=== PATIENT | female | born 1965 | race African-American/Black ===

== ENCOUNTER 2019-12-01 14:15 | Emergency (ER) | payer MEDICAID, SELFPAY ==
[2019-12-01 14:15] VITALS: BP 144/77; PULSE 84; RESP 16; TEMP 36.9; O2SAT 98; BMI 23.7
--- NOTE | 2019-12-01 14:25 | XR_ITS ---
PROCEDURE: XR CHEST PORTABLE CLINICAL HISTORY: ams Altered mental status, altered level of consciousness, confusion, disorientation COMPARISON: CXR CHEST(2 VIEWS-NOT PORTABLE) from 06/07/2014 CXR CHEST(2 VIEWS-NOT PORTABLE) from 02/17/2015 CXR1 CHEST-PORTABLE from 04/04/2015 FINDINGS: The cardiomediastinal silhouette and pulmonary vascularity are within normal limits. The lungs are clear without infiltrates, suspicious nodules, or pleural effusions. No acute bony abnormalities. IMPRESSION: No acute findings. Dictated by: Jose Angel MD 12/01/2019 15:08 Electronically signed by Jose Angel MD in [place] 12/01/2019 15:08
--- NOTE | 2019-12-01 14:27 | HMH.EDGENADL ---
ED Disposition Clinical Impression: Hypoglycemia Diabetes mellitus Qualifiers: Diabetes mellitus type: type 2 Diabetes mellitus adjunct faculty for medical terminology insulin use: with senior care use Diabetes mellitus complication status: with hypoglycemia Diabetes mellitus complication detail: without coma Qualified Code(s): E11.649 - Type 2 diabetes mellitus with hypoglycemia without coma; Z79.4 - technician terminal and repeater (current) use of insulin Uncontrolled diabetes mellitus Qualifiers: Diabetes mellitus type: type 2 Glycemic state: with hypoglycemia Coma presence: without coma Qualified Code(s): E11.649 - Type 2 diabetes mellitus with hypoglycemia without coma Disposition: Home, Self-Care Condition on Discharge: Fair Instructions: DI for Hypoglycemia Additional Instructions: You have been evaluated for low blood sugar, hypoglycemia. Please monitor your blood sugar at home. Do not take insulin if you are not going to eat. Follow-up with your primary care doctor as soon as available. Return to the emergency department if you have any new or worsening symptoms Referrals: PCP,No [Primary Care Provider] - Time of Disposition: 17:08 - Critical Care Critical Care Time: No Attestation: On , the high probability of a clinically significant, sudden or life threatening deterioration of the following system(s) required my full and direct attention, intervention and personal management. The time I documented below is in addition to time spent performing reported procedures but includes the following listed in this critical care notation. Medical Decision Making - Medical Records Medical records reviewed: Yes: I reviewed the patient's medical records. - Ferny Inquiry Pt receiving controlled substance: No Vital Signs: 12/01/19 14:15 12/01/19 14:34 12/01/19 15:48 Temperature 98.5 F Temperature Source Oral Pulse Rate [Right] 84 83 82 Respiratory Rate 16 Blood Pressure [Right Arm] 144/77 H 144/77 H 163/76 H Blood Pressure Mean [Right Arm] 99 99 105 Blood Pressure Source [Right Arm] Automatic Cuff Automatic Cuff Automatic Cuff Blood Pressure Position [Right Arm] Sitting Sitting Sitting 02 Sat by Pulse Oximetry 98 97 100 Oxygen Delivery Method Room Air Room Air Room Air 12/01/19 16:12 12/01/19 16:40 Temperature Temperature Source Pulse Rate [Right] 82 86 Respiratory Rate Blood Pressure [Right Arm] 146/77 H 156/82 H Blood Pressure Mean [Right Arm] 100 106 Blood Pressure Source [Right Arm] Automatic Cuff Automatic Cuff Blood Pressure Position [Right Arm] Sitting Sitting 02 Sat by Pulse Oximetry 99 99 Oxygen Delivery Method Room Air Room Air - Lab Data Lab Results 12/01/19 14:38: Urine Color Yellow, Urine Appearance Clear, Urine pH 7.0, Ur Specific [place] 1.020, Urine Protein Negative, Urine Glucose (UA) Trace, Urine Ketones Negative, Urine Blood Negative, Urine Nitrate Negative, Urine Bilirubin Negative, Urine Urobilinogen 0.2, Ur Leukocyte Esterase Negative, Urine RBC Occasional, Urine WBC Occasional, Ur Squamous Epith Cells 3-5, Urine Bacteria None 12/01/19 14:38: Urine Opiates Screen Negative, Urine Methadone Screen Negative, Ur Barbituates Screen Negative, Ur Phencyclidine Scrn Negative, Ur Amphetamines Screen Negative, U Benzodiazepines Scrn Negative, Urine Cocaine Screen Negative, U Marijuana (THC) Screen Negative 12/01/19 15:18: WBC 5.3, RBC 4.65, Hgb 12.0 L, Hct 38.5, MCV 82.8, MCH 25.7 L, MCHC 31.0 L, RDW 18.7 H, Plt Count 362, MPV 8.0, Neut % (Auto) 61.3, Lymph % (Auto) 28.7, [place] % (Auto) 7.0, Eos % (Auto) 2.7, Baso % (Auto) 0.3, Neut # (Auto) 3.3, Lymph # (Auto) 1.5, [place] # (Auto) 0.4, Eos # (Auto) 0.1, Baso # (Auto) 0.0 12/01/19 15:18: Sodium 137, Potassium 4.1, Chloride 97 L, Carbon Dioxide 29, Anion Gap 15.1 H, BUN 15, Creatinine 0.70, Estimated Creat Clear 87, Estimated GFR 87, Est GFR ( Amer) 105, Glucose 99, Calcium 9.5 12/01/19 15:18: Plasma/Serum Alcohol < 10 12/01/19 16:52: POC Glucose 222 H Result diagrams: 11/30
[2019-12-01 14:34] VITALS: BP 144/77; PULSE 83; O2SAT 97
--- NOTE | 2019-12-01 14:34 | PC.NURSE ---
FSBS 46 upon arrival pt given amp of d50 and orange juice. ordered tray pt in bed eating at this time.
[2019-12-01 14:42] LABS: Microscopic, Urine URINE MICROSCOPIC (MICROSCOPIC)
[2019-12-01 14:43] LABS: Appearance,Urine CLEAR (Clear); Bilirubin,Urine Negative (Negative); Blood, Urine Negative (Negative); Color,Urine YELLOW (Yellow); Glucose,Urine (UA) TRACE (Negative); Ketones,Urine Negative (Negative); Leukocyte Esterase,Urine Negative (Negative); Nitrate,Urine Negative (Negative); Protein,Urine Negative (Negative); Urobilinogen,Urine 0.2 EU/dl (0.2)
--- NOTE | 2019-12-01 14:45 | PC.NURSE ---
Lab at bedside
[2019-12-01 15:03] LABS: Amphetamine/Metha Screen,Urine Negative ng/ml (<1000); Barbiturates Screen,Urine Negative ng/ml (<200); Benzodiazepines Screen,Urine Negative ng/ml (<200); Cannabinoid Screen,Urine Negative ng/ml (<50); Cocaine Screen,Urine Negative ng/ml (<300); Methadone Screen,Urine Negative ng/ml (<300); Opiate Screen,Urine Negative ng/ml (<300); Phencyclidine Screen,Urine Negative ng/ml (<25)
[2019-12-01 15:11] LABS: RBC,Urine Occasional #/hpf (0-3); WBC,Urine Occasional #/hpf (0-3)
--- NOTE | 2019-12-01 15:17 | ECG_ITS ---
APPROVED REPORT Exam: Resting ECG HR:79 bpm ECG Measurements Heart Rate 79 AXES VA 124 P 57 QRSd 82 QRS 36 QT 418 T 33 QTc 479 <Conclusion> Normal sinus rhythm Left atrial abnormality Borderline ECG Electronically signed by : Manolo Beltran, 12/05/2019 08:12:22
[2019-12-01 15:33] LABS: Basophils % 0.3 % (0.1-2.0); Eosinophils # 0.1 K/mm3 (0.0-0.4); Eosinophils % 2.7 % (0.1-12.0); Hematocrit 38.5 % (37.0-47.0); Lymphocytes # 1.5 K/mm3 (0.7-4.5); Lymphocytes % 28.7 % (10-50); Mean Corpuscular Hemoglobin 25.7 pg (27.0-31.2); Mean Corpuscular Volume 82.8 fl (81-99); Monocytes # 0.4 K/mm3 (0.1-1.0); Neutrophils # 3.3 K/mm3 (1.8-7.8); Neutrophils % 61.3 % (37.0-80.0); Platelet Count 362 K/mm3 (142-424); Red Blood Count 4.65 M/mm3 (4.20-5.40); Red Cell Distribution Width 18.7 % (11.5-17.5); White Blood Count 5.3 K/mm3 (4.8-10.8)
[2019-12-01 15:38] LABS: Chloride 97 mmol/L (98-107); Potassium 4.1 mmoL/L (3.5-5.1); Sodium 137 mmol/L (136-145)
[2019-12-01 15:41] LABS: Anion Gap 15.1 mEq/L (5-15); Blood Urea Nitrogen 15 mg/dl (7-17); Calcium 9.5 mg/dl (8.4-10.2); Carbon Dioxide 29 mmol/L (22.0-30.0); Creatinine Clearance Estimated 87 mL/min (50-200); Estimated Glomerular Filt Rate 87 ml/min (>60); GFR (African American) 105 ML/MIN (>60); Glucose 99 mg/dl (74-100)
[2019-12-01 15:43] LABS: Ethyl Alcohol < 10 mg/dl (0-10)
[2019-12-01 15:48] VITALS: BP 163/76; PULSE 82; O2SAT 100
[2019-12-01 16:12] VITALS: BP 146/77; PULSE 82; O2SAT 99
--- NOTE | 2019-12-01 16:12 | PC.NURSE ---
Pt up to restroom via w/c
[2019-12-01 16:40] VITALS: BP 156/82; PULSE 86; O2SAT 99
[2019-12-01 17:02] LABS: POC Glucose,Bedside 222 (70-110)
--- NOTE | 2019-12-01 17:04 | PC.NURSE ---
FSBS 222
[2019-12-01 17:22] VITALS: BP 156/87; PULSE 87; RESP 16; TEMP 36.7; O2SAT 99
== END 2019-12-01 17:24 | disposition home or self-care (01) ==
PROVIDERS: Emergency Provider Emergency Medicine
DX: E11.649 Type 2 diabetes mellitus with hypoglycemia without coma (principal); Z79.4 Long term (current) use of insulin; Z88.8 Allergy status to other drugs, medicaments and biological substances
CPT/HCPCS: 36415; 71045; 80048; 80305; 81001; 82962; 85025; 93005; 96374; 99284

== ENCOUNTER 2020-01-07 15:58 | Emergency (ER) | payer MEDICAID, SELFPAY ==
[2020-01-07 16:23] VITALS: BP 182/80; PULSE 87; RESP 14; TEMP 36.5; O2SAT 99; BMI 24.8
--- NOTE | 2020-01-07 16:47 | HMH.EDUTC ---
[facility] [place] Disposition Clinical Impression: Sinusitis Qualifiers: Sinusitis location: unspecified location Chronicity: unspecified Qualified Code(s): J32.9 - Chronic sinusitis, unspecified Disposition: Home, Self-Care Condition on Discharge: Good Instructions: Sinusitis, Sinus Headache, DI for Sinusitis, Azithromycin Additional Instructions: *Monitor Temp, Over the counter Motrin or Tylenol as directed/as needed Tylenol every 4 hours and Motrin every 6 hours (as long as your family doctor has told you that you can take it) for fever or pain. and straight to ER if unable to lower temp less than 101.0 after medication given *Warm salt water gargles may help to soothe the throat *Throat Lozenges *Warm fluids like tea with honey may help to soothe the throat *Sleep elevated *Humidifier/Vaporizer *Flonase 2 sprays in each nostril daily but be aware that it may take 2-3 days before you notice improvement Follow up IMMEDIATELY for new or worsening symptoms or no Noticeable improvement over the next 48-72 hours. 911 for difficulty breathing or swallowing Prescriptions: Fluticasone Propionate [Flonase 50mcg nasal spray 16gm] 1 spr NS DAILY #1 bottle Transmission Status: Pending to [facility] Azithromycin [Z-Vin 250mg Tab] 250 mg PO DIRECTED #6 tab Transmission Status: Pending to [facility] Referrals: Juan Pablo Mendez JR, MD [Primary Care Provider] - As needed Time of Disposition: 16:59 Medical Decision Making - Ferny Inquiry Pt receiving controlled substance: No Ferny was queried for this patient: No Vital Signs: 01/07/20 16:23 Temperature 97.7 F Temperature Source Oral Pulse Rate [Right Brachial] 87 Respiratory Rate 14 Blood Pressure [Right Arm] 182/80 H Blood Pressure Mean [Right Arm] 114 Blood Pressure Source [Right Arm] Automatic Cuff Blood Pressure Position [Right Arm] Sitting 02 Sat by Pulse Oximetry 99 Oxygen Delivery Method Room Air Orders (Tests/Meds): ORDERS Category Date Time Status Covid-19 Nasal PCR Sendout [facility] 01/07/20 16:28 Received [facility] [place] HPI - General Stated complaint: sore throat,cough,SHEA,Diarrhea,wants covid test Time Seen by Provider: 01/07/20 16:47 Mode of Arrival: Ambulatory Source of Information: Patient Limitations: No Limitations Description of Symptoms (Recalled from Triage Doc. by RN): PATIENT C/O HEADACHE, DIARRHEA, RUNNY NOSE AND COUGH. STATES SHE WAS POSSIBLY EXPOSED TO COVID IN NOVEMBER. PATIENT ALSO REPORTS SHE NEEDS A COVID TEST PRIOR TO HIP REPLACEMENT NEXT WEEK HEENT Symptoms (Recalled from RN notes): Yes Resp Symptoms (Recalled from RN notes): Yes Skin Symptoms (Recalled from RN notes): No MS Symptoms (Recalled from RN notes): No Functional Status (Recalled from RN notes): WNL - History of Present Illness Provider Complaint: Patient states that she has surgery next week and has to have COVID test prior States that also she was recently around her niece that is positive for COVID States that she had diarrhea last week and seen her PCP for that and since has been having sinus pain and pressure cough and sore throat - Related Data Previous Rx's Medication Instructions Recorded Azithromycin [Z-Vin 250mg Tab] 250 mg PO DIRECTED #6 tab 01/07/20 Fluticasone Propionate [Flonase 1 spr NS DAILY #1 bottle 01/07/20 50mcg nasal spray 16gm] Allergies Allergy/AdvReac Type Severity Reaction Status Date / Time lisinopril [LISINOPRIL] Allergy Severe S-DIFF. Verified 12/01/19 14:33 BREATHING metronidazole [From FLAGYL] Allergy Severe S-DIFF. Verified 12/01/19 14:33 BREATHING - Worker's Comp Is this a Worker's Comp case?: No [facility] History - Hepatitis A Screen Drug use history?: No High risk sexual behaviors?: No History of sexually transmitted infection?: No Currently employed?: No Childcare worker?: No Do you have indoor plumbing?: Yes Do you have electricity?: Yes Attestation statement:: Th
[2020-01-07 16:59] VITALS: BP 182/80; PULSE 87; RESP 14; TEMP 36.5; O2SAT 99
[2020-01-10 00:23] LABS: Covid-19 Nasal PCR Sendout Lex NOT DETECTED
[2020-01-11 11:49] LABS: POC Glucose,Bedside 46 (70-110)
== END 2020-01-07 17:02 | disposition home or self-care (01) ==
PROVIDERS: Emergency Provider Nurse Practitioner; PCP Family Medicine
DX: J32.9 Chronic sinusitis, unspecified (principal); Z20.828 Contact with and (suspected) exposure to other viral communicable diseases; F17.210 Nicotine dependence, cigarettes, uncomplicated
CPT/HCPCS: 82962; 99201; U0004